=== PATIENT | female | born 1955 | race Caucasian/White ===

== ENCOUNTER 2016-09-16 17:26 | Observation (INO) | payer OTHER ==
--- NOTE | 2016-09-16 17:33 | ED ---
General Adult HPI - General Stated complaint: Fall-Leg Injury Time Seen by Provider: 09/16/16 17:32 - History of Present Illness Initial comments: Patient is a 61-year-old female who presents to the emergency department via EMS for evaluation of right lower extremity pain and deformity. Patient states that she was in her backyard when her dog ran after her tripping her. Patient states that while she was in the air she noted that her leg was bent sideways. She landed on the ground and was experiencing pain in her right lower extremity. Patient states she sat there until her daughter found her and called 911 for further evaluation. Patient denies striking her head or losing consciousness. She denies any headache or neck pain. Patient is not on any anticoagulant or antiplatelet medication. EMS reports that there was obvious deformity of the right lower extremity in the mid tibia upon their initial evaluation. They splinted the extremity treated the patient with a milligrams of morphine and 4 of Zofran and transported her to the ED. She reports she was in her usual state of health until this injury occurred. She denies any additional complaints at this time. - Related Data Home Medications Medication Instructions Recorded Confirmed Aspirin EC [Ecotrin Low Dose] 81 mg PO DAILY PRN 09/16/16 09/16/16 Butalb/APAP/Caff 50-325-40Mg 1 tab PO Q4H PRN 09/16/16 09/16/16 [Fioricet 50-325-40] Levothyroxine Sodium [Synthroid] 100 mcg PO MOWEFR 09/16/16 09/16/16 Meloxicam [Mobic] 15 mg PO DAILY 09/16/16 09/16/16 Multivitamins, Thera [Multivitamin 1 tab PO DAILY 09/16/16 09/16/16 (formulary)] Allergies Allergy/AdvReac Type Severity Reaction Status Date / Time cephalexin [From Keflex] Allergy Nausea & Verified 09/16/16 17:49 Vomiting & Diarrhea hydromorphone [From Dilaudid] Allergy Unknown Verified 09/16/16 17:44 Review of Systems ROS Statement: Those systems with pertinent positive or pertinent negative responses have been documented in the HPI. ROS Other: All systems not noted in ROS Statement are negative. Constitutional: Denies: fever, chills Respiratory: Denies: dyspnea Cardiovascular: Denies: chest pain, palpitations Endocrine: Denies: fatigue Gastrointestinal: Reports: nausea (after morphine). Denies: abdominal pain, vomiting Genitourinary: Denies: dysuria Musculoskeletal: Reports: other (RLE pain). Denies: back pain Skin: Reports: change in color (bruising to RLE) Neurological: Denies: headache, weakness Psychiatric: Denies: anxiety, depression Hematological/Lymphatic: Denies: easy bleeding, easy bruising General Exam General appearance: alert, in distress (appears uncomfortable) Head exam: Present: atraumatic, normocephalic, normal inspection Eye exam: Present: normal appearance, PERRL, EOMI. Absent: scleral icterus, conjunctival injection, periorbital swelling ENT exam: Present: normal exam, mucous membranes moist Neck exam: Present: normal inspection. Absent: tenderness, meningismus, lymphadenopathy Respiratory exam: Present: normal lung sounds bilaterally. Absent: respiratory distress, wheezes, rales, rhonchi, stridor Cardiovascular Exam: Present: regular rate, normal rhythm, normal heart sounds. Absent: systolic murmur, diastolic murmur, rubs, gallop, clicks GI/Abdominal exam: Present: soft, normal bowel sounds. Absent: distended, tenderness, guarding, rebound, rigid Rectal exam: Present: deferred Extremities exam: Present: tenderness, normal capillary refill Right Lower Leg exam: Present: tenderness, swelling, ecchymosis Ankle exam: Absent: tenderness, swelling Foot/Toe exam: Present: full ROM. Absent: tenderness, swelling, abrasion, laceration, ecchymosis, deformity, dislocation Neurovascular tendon exam: Absent: abnormal cap refill, sensory deficit, pallor Course Vital Signs 09/16/16 09/16/16 09/16/16 17:40 17:43 19:37 Temperature 98.7 F Pulse Rate 70 69 69 Respiratory 18 18 18 Rate Blood Pressure 133/61 133/67 140/72 O2 Sat by Pulse 96 97 97 Oximetry - Reevaluation(s) Reevaluation #1: Patient updated on x-ray findings as well as plan for admission with likely OR tomorrow morning. 09/16/16 18:32 EKG Findings - EKG Comments: EKG Findings:: EKG performed at 1925 rate is 70, PACs noted, normal intervals, no acute ST elevations or depressions Procedures - Orthopedic Splinting/Casting Injury #1 Side: right Lower Extremity Injury Location: lower leg Medical Decision Making - Medical Decision Making Patient was seen and evaluated immediately upon arrival from EMS Per EMS the patient had an obvious deformity of the right lower [place], she was splinted with a pillow and transported to the ED Patient with significant tenderness the mid to distal tib-fib area, she is neurovascularly intact distal to the injury. X-rays were ordered. X-ray reveals a midshaft comminuted spiral tibial fracture. As well as a proximal fibular fracture. Patient care discussed with Dr. Wagner (ortho commercial drone software developer) who requested the patient have a CT of the right lower extremity with attention to the ankle to rule out nondisplaced fracture, he recommends the patient be admitted to his service with a consult to medicine for preoperative clearance. Admission plan was discussed with the patient was agreeable. Orders placed Posterior splint was applied to patients leg. She remained neurovascularly intact after splinting. - Lab Data Result diagrams: 09/16/16 19:09 09/16/16 19:09 Disposition Clinical Impression: Tibia/fibula fracture, shaft Disposition: ADMITTED IP TO THIS [facility] Condition: Good
[2016-09-16] MEDS ORDERED: NALOXONE 0.4 MG/ML 1 ML VIAL IV PRN (18:55)
[2016-09-16] MEDS ORDERED: ACETAMINOPHEN TAB 325 MG TAB PO PRN (18:55)
--- NOTE | 2016-09-16 19:05 | XR ---
EXAMINATION TYPE: XR tibia fibula RT DATE OF EXAM: 09/16/2016 COMPARISON: NONE HISTORY: Pain after injury TECHNIQUE: 4 views FINDINGS: The distal tibial shaft shows an oblique fracture with one shaft width lateral displacement . The proximal fibular shaft shows an oblique fracture with one shaft width displacement laterally. The joints at the knee and the ankle are intact. IMPRESSION: Fractures as noted.
[2016-09-16 19:24] LABS: Basophils % (A) 0 %; CH 31.5; CHCM 33.2; Eosinophils % (A) 0 %; HCT 44.8 % (34.0-46.0); HDW 2.19; HGB 14.4 gm/dL (11.4-16.0); Luc # (Auto) 0.05; Luc % (Auto) 1; Lymphocytes # (A) 0.7 k/uL (1.0-4.8); Lymphocytes % (A) 8 %; MCH 30.7 pg (25.0-35.0); MCHC 32.2 g/dL (31.0-37.0); MCV 95.4 fL (80.0-100.0); Mean Platelet Volume 8.3; Monocytes # (A) 0.4 k/uL (0-1.0); Monocytes % (A) 5 %; Neutrophils # (A) 7.9 k/uL (1.3-7.7); Neutrophils % (A) 86 %; RDW 13.2 % (11.5-15.5); WBC 9.2 k/uL (3.8-10.6); WBC (Perox) 9.31
[2016-09-16 19:32] LABS: Anion Gap 9 mmol/L; Blood Urea Nitrogen 15 mg/dL (7-17); Calcium 9.3 mg/dL (8.4-10.2); Carbon Dioxide 25 mmol/L (22-30); Chloride 109 mmol/L (98-107); Glucose 117 mg/dL (74-99); Non-African American GFR(MDRD) >60 (>60 ml/min/1.73 sqM); Sodium 143 mmol/L (137-145)
[2016-09-16] MEDS: SODIUM CHLORIDE 0.9% 1,000 ML IV SCH (19:41)
[2016-09-16] MEDS: ONDANSETRON 4 MG/2 ML VIAL IVP PRN (19:42)
[2016-09-16] MEDS: MORPHINE SULFATE 4 MG/ML SYRINGE IV PRN (19:45)
--- NOTE | 2016-09-16 19:57 | XR ---
EXAMINATION TYPE: XR chest 1V DATE OF EXAM: 09/16/2016 COMPARISON: NONE HISTORY: Preoperative clearance for fracture treatment TECHNIQUE: Single frontal view of the chest is obtained. FINDINGS: There is no focal air space opacity, pleural effusion, or pneumothorax seen. The cardiac silhouette size is within normal limits. Thoracic aorta tortuosity is noted. The osseous structures a re intact. IMPRESSION: No acute process.
[2016-09-16 20:10] LABS: Partial Thromboplastin Time 22.4 sec (22.0-30.0)
[2016-09-16 20:21] LABS: Prothrombin Time 9.8 sec (9.0-12.0)
[2016-09-16] MEDS: METOCLOPRAMIDE 5 MG/ML 2 ML VIAL IVP PRN (20:31)
--- NOTE | 2016-09-16 20:54 | CT ---
EXAMINATION TYPE: CT lower extremity RT wo con DATE OF EXAM: 09/16/2016 COMPARISON: same-day radiographs HISTORY: Fall today; pain. CT DLP: 639.00 mGycm Automated exposure control for dose reduction was used. FINDINGS: The distal tibial shaft oblique fracture is mildly comminuted with one-half shaft width lateral displ acement, and with 2.5 cm override. There is a nondisplaced posterior malleolar fracture which extends down through the tibial plafond an d into the tibiotalar joint. The tibiotalar articulation is congruent. The talus is not fractured and the subtalar joint is intact. The proximal oblique fibular neck and proximal shaft fracture is moderately comminuted with one-half shaft width displacement laterally and with approximately 1 cm override. The upper tibiofibular artic ulation is congruent as is the compartments of the knee. IMPRESSION: 1. DISTAL TIBIAL SHAFT FRACTURE. 2. NONDISPLACED POSTERIOR MALLEOLAR INTRA-ARTICULAR FRACTURE. 3. UPPER FIBULAR SHAFT/NECK FRACTURE.
[2016-09-17] MEDS: MORPHINE SULFATE 4 MG/ML SYRINGE IV PRN ×6 (02:35→23:31)
[2016-09-17] MEDS: ONDANSETRON 4 MG/2 ML VIAL IVP PRN ×5 (05:54→19:19)
[2016-09-17] MEDS: SODIUM CHLORIDE 0.9% 1,000 ML IV SCH (05:59)
--- NOTE | 2016-09-17 08:29 | P.HPOR ---
History of Present Illness H&P Date: 09/17/16 This is a pleasant 61-year-old female who sustained an injury to the right lower extremity yesterday morning. Patient states she was in her yard when her dog ran into her. Patient states her leg came out from under her and she noticed a deformity to the right leg right away. Patient states she was unable to get up and walk on the right lower extremity and she had to crawl back into her house in order to get a hold of her daughter. Patient states her daughter called EMS and she was taken to the emergency room. X-rays and a CT were done in the emergency room showing right tib/fib fracture and posterior malleolar fracture. Patient was treated with a long leg splint in emergency room and admitted for orthopedic evaluation. Patient states she still has pain in the right lower extremity but it is tolerable. Patient denies any numbness, weakness, tingling. Patient states she did not hit her head. Patient denies any neck pain, back pain, bilateral upper extremity pain, or pain in the left lower extremity. Review of Systems See HPI. 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 History of Any Multi-Drug Resistant Organisms: None Reported Past Surgical History: No Surgical Hx Reported Past Anesthesia/Blood Transfusion Reactions: No Reported Reaction Past Psychological History: No Psychological Hx Reported Smoking Status: Current every day smoker Past Alcohol Use History: Occasional Past Drug Use History: Marijuana Medications and Allergies Home Medications Medication Instructions Recorded Confirmed Type Aspirin EC [Ecotrin Low Dose] 81 mg PO DAILY PRN 09/16/16 09/16/16 History Butalb/APAP/Caff 50-325-40Mg 1 tab PO Q4H PRN 09/16/16 09/16/16 History [Fioricet 50-325-40] Levothyroxine Sodium [Synthroid] 100 mcg PO MOWEFR 09/16/16 09/16/16 History Meloxicam [Mobic] 15 mg PO DAILY 09/16/16 09/16/16 History Multivitamins, Thera [Multivitamin 1 tab PO DAILY 09/16/16 09/16/16 History (formulary)] Allergies Allergy/AdvReac Type Severity Reaction Status Date / Time cephalexin [From Keflex] Allergy Nausea & Verified 09/16/16 17:49 Vomiting & Diarrhea hydromorphone [From Dilaudid] Allergy Unknown Verified 09/16/16 17:44 Physical Examination Patient is alert and oriented 3 and is in no acute distress. On exam of the right lower extremity a long leg splint is intact. Patient is able to wiggle the toes of the right foot. Sensation is intact. Capillary refill is normal at less than 2 seconds. No tenderness to palpation of the right knee or upper leg. Patient has full range of motion of the left lower extremity. There is no tenderness to palpation of the left lower extremity. Neurovascular status is intact to bilateral lower extremities. There is no cervical midline tenderness. There is no tenderness to palpation of bilateral upper extremities and patient has full range of motion of bilateral upper extremities. Neurovascular status is intact bilateral upper extremities. Results X-rays of the right lower extremity are reviewed showing displaced distal tibial shaft fracture and displaced proximal fibular shaft fracture. A CT of the right lower extremity was done showing #1 distal tibial shaft fracture, nondisplaced posterior malleolar intra-articular fracture. #3 upper fibular shaft/neck fracture. Report by Dr. Love - Labs Labs: Abnormal Lab Results - Last 24 Hours (Table) 09/16/16 09/16/16 Range/Units 19:09 19:09 Neutrophils # 7.9 H (1.3-7.7) k/uL Lymphocytes # 0.7 L (1.0-4.8) k/uL Chloride 109 H (98-107) mmol/L Glucose 117 H (74-99) mg/dL H & H 09/16/16 Range/Units 19:09 Hgb 14.4 (11.4-16.0) gm/dL Hct 44.8 (34.0-46.0) % Coagulation 09/16/16 Range/Units 19:09 INR 1.0 (<1.2) Result Diagrams: 09/16/16 19:09 09/16/16 19:09 Assessment and Plan (1) Tibia/fibula fracture, shaft Status: Acute (2) Closed fracture of posterior malleolus Status: Acute Plan: #1. Patient is to be NPO #2. Nonweightbearing to the right lower extremity, continue long leg splint #3. Rest, ice, elevate the right lower extremity #4. Patient is scheduled for placement of right tibial intramedullary nail and ORIF right posterior malleolus with Dr. Wagner today. #5. Will continue to follow patient closely
[2016-09-17] MEDS: METOCLOPRAMIDE 5 MG/ML 2 ML VIAL IVP PRN ×3 (10:51→23:31)
[2016-09-17] MEDS ORDERED: IV FLUID CONTINUATION 1,000 ML IV ONE (12:47)
[2016-09-17] MEDS ORDERED: ceFAZolin 2 GM in SODIUM CHLORIDE 0.9% 100 ML IVPB ONE (13:11)
[2016-09-17] MEDS ORDERED: GLYCOPYRROLATE 0.2 MG/ML 2 ML VIAL ONE (13:18)
[2016-09-17] MEDS ORDERED: KETAMINE 10 MG/ML 20 ML VIAL ONE (13:18)
[2016-09-17] MEDS ORDERED: PHENYLEPHRINE-0.9% NACL SYG 1 MG/10 ML SYRINGE ONE (13:18)
[2016-09-17] MEDS ORDERED: fentaNYL (PF) 50 MCG/ML 2 ML AMP ONE (13:18)
[2016-09-17] MEDS ORDERED: MIDAZOLAM 2 MG/2 ML VIAL ONE (13:18)
[2016-09-17] MEDS ORDERED: NEOSTIGMINE 1 MG/ML 10 ML VIAL ONE (13:18)
[2016-09-17] MEDS ORDERED: LIDOCAINE 1% INJ 10MG/ML (20 ML MDV) ONE (13:18)
[2016-09-17] MEDS ORDERED: MORPHINE SULFATE 10 MG/ML SYRINGE ONE (13:18)
[2016-09-17] MEDS ORDERED: SUCCINYLCHOLINE CHLORIDE 100 MG/5 ML SYR IV ONE (13:18)
[2016-09-17] MEDS ORDERED: ROCURONIUM BROMIDE 10 MG/ML 10 ML VIAL IV ONE (13:18)
[2016-09-17] MEDS ORDERED: PROPOFOL 10 MG/ML 20 ML VIAL IV ONE (13:18)
[2016-09-17] MEDS ORDERED: LACTATED RINGERS 1,000 ML IV ONE ×2 (14:15→15:49)
[2016-09-17] MEDS ORDERED: CLINDAMYCIN 600 MG in SODIUM CHLORIDE 0.9% 1,000 ML IRRIGATION ONE (14:29)
--- NOTE | 2016-09-17 15:35 | P.PN ---
Progress Note - Text Unable to evaluate today as patient is an surgery.
[2016-09-17] MEDS ORDERED: ONDANSETRON 4 MG/2 ML VIAL IVP ONE (16:31)
--- NOTE | 2016-09-17 16:31 | P.OP ---
Date of Procedure: 09/17/16 Preoperative Diagnosis: 1. Closed, right spiral distal third tibia fracture 2. Right proximal fibula fracture 3. Right posterior malleolus fracture 4. Current every day cigarette smoker Postoperative Diagnosis: Same Procedure(s) Performed: 1. Right tibial intramedullary nail 2. Open reduction internal fixation right posterior malleolus fracture 3. Nonoperative management right proximal fibula fracture 4. Manual application of joint stress by physician for radiography, right ankle 5. Application of short leg splint Implants: Synthes 340 mm x 9 mm tibial nail Anesthesia: RADHIKA Surgeon: Flako Wagner Estimated Blood Loss (ml): 50 IV fluids (ml): 600 Urine output (ml): 1,700 Pathology: none sent Condition: stable Disposition: PACU Indications for Procedure: The patient is a 61-year-old female with a medical history significant for currently smoking cigarettes every day who sustained an isolated injury to her right leg. Yesterday the patient was out walking her dog when she was knocked over and sustained an injury to her right leg. She had immediate pain, deformity and an inability to walk. She was brought to the emergency department where x-rays showed a right tibia fracture and proximal fibula fracture. She was placed in a splint and admitted under my care. I ordered a computed tomography scan to rule out a posterior malleolus fracture. The computed tomography scan did show a large, nondisplaced posterior malleolus fracture. The patient was cleared for surgery and I met with the family before surgery discussed the potential risks and complications of surgery including but not limited to risk of anesthesia, risk of superficial infection, risk of deep infection, risk of delayed wound healing, risk of damage to local blood vessels or nerves, risk of intraoperative fracture, risk of postoperative fracture, risk of fracture nonunion, risk of fracture malunion, risk of postoperative displacement of both the tibia and posterior malleolus fracture, risk of chronic pain, risk of chronic swelling, risk of postoperative compartment syndrome, risk of inability to ambulate preinjury level of function , and risk of postoperative medical complications including DVT and possibly fatal PE. The patient understands that due to her current every day smoking she is at a much higher risk of having a complication particularly a wound healing issue or fracture nonunion. She voiced her understanding of this and provided verbal and written consent to go forward with surgery. Operative Findings: Description of Procedure: The patient was identified in preoperative holding and the correct right lower extremity was marked with my initials. I reviewed the consent form with the patient and answered all of her questions. She was then brought back to the operating room by anesthesia. She was positioned onto the operating room table after a general anesthetic was administered while on the gurney. A Rouse catheter was placed. Preoperative antibiotics were administered. A tourniquet was applied to the proximal aspect of the right thigh but was not inflated for the entire case. A bump was placed under her right leg internally rotating it. The left leg was secured to the operating room table with foam and tape. The patient had all extremities well-padded. The patient's leg was then prepped and draped in the standard sterile fashion. A timeout was performed identifying the correct patient, operative extremity, and procedure. I began by attempting to clamp the tibia fracture. A stab incision was made proximal to the fracture along the posterior medial border of the tibia and a second stab incision was made along the anterolateral aspect of the leg just distal to the fracture. A large [id number] spin down Waters reduction clamp was placed through the stab incisions and I attempted to manipulate the fracture and clamp it. Due to the large butterfly fragment I was not able to obtain a vector to provide reduction and compression with a clamp. Attention was then turned to the posterior malleolus fracture. Stab incisions were made just proximal to the lateral aspect of the tibiotalar joint anteriorly and posteriorly. Hemostat was used to spread down to bone. A Waters adduction clamp was used to provide compression across the posterior malleolus fracture with 1 kirill placed the stab incision posteriorly and one anteriorly. I verified position of the clamp. I then placed a K wire from anterior to posterior over the anterolateral aspect of the distal tibia directed posterior laterally catching the posterior malleolus fragment. The wire was measured and a partially threaded 4.0 mm cannulated screw was placed across the posterior malleolus. I verified position of the screw which appeared to capture the posterior malleolus and was out of the way of the nail. A sterile radiolucent triangle was then placed on the OR table and the knee was draped across the triangle. I outlined a 3 cm incision over the inferior pole of the patella. Skin incision was made a scalpel and dissection was carried down carefully to the peritenon which was incised longitudinally in line with the skin incision. I split the patellar tendon in the midline. I then placed a guidepin along the medial border of the lateral tibial spine on the AP view and just at the anterior crest of the tibia on the lateral view. The guidepin was advanced and the proximal tibia and opening reamer was used to gain access to the tibia. A ball-tipped guidewire with a bend at the end was then entered into the tibia and advanced down to the fracture site. The fracture site was gently manipulated and the guidewire was passed into the distal fragment. The guidewire was centered at the physes scar in both the AP and lateral planes. Once the guidewire was positioned distally a cannulated measuring device was used to measure the length of the nail. I then started reaming with an 8 mm reamer and significant chatter was generated with the 9 mm reamer. I then reamed and a half millimeter increments up to a 10.5 mm reamer. A 9 mm nail was dispensed and I verified the targeting arm matched up with all the proximal slots. The nail was then passed over the guidewire and advanced down with light blows of mallet to the fracture site. Under direct fluoroscopic imaging the nail was advanced past the fracture and into the distal fragment. The fracture appeared to be well reduced and the nail was centered in the distal fragment. I then verified proximally that the nail was countersunk. I then placed 2 interlocking screws proximally through the targeting arm with the distal screw in the static arm and the more proximal screw in the dynamic portion of the dynamic slot. The targeting arm was then removed and the leg was placed flat on the OR table. The C-arm was then brought down and 3 distal interlocking screws were placed using the freehand technique. At this point a manual external rotation stress x-ray of the ankle was performed to make sure there was no syndesmotic instability. A mortise view was obtained and an external rotation force was applied to the ankle. There is no widening of the syndesmosis or medial clear space. I interpreted this as a stable reduction. Final x-rays of the tibia and ankle were taken verifying reduction of the fractures and placement of the tibial nail and screws. All wounds were copiously irrigated. The patellar tendon was closed with interrupted 0 Vicryl stitches. The peritenon was closed with interrupted 2-0 Vicryl. The deep subcu over the patellar incision was closed with interrupted 2-0 Vicryl. Skin incisions were all closed with 3-0 nylon horizontal mattress stitches. I verified that all instrument, sponge, and sharp counts were correct. Sterile dressing consisting of Betadine soaked Adaptic, 4 x 4, and web roll was applied. A very well-padded bulky Herron splint was then placed. The patient was transferred from the operating room table to the [facility] and brought to PACU having type the procedure well Plan: The patient is going to be admitted for pain control. She'll receive 2 doses of postoperative antibiotics. She is to receive Lovenox 30 mg twice a day 2 weeks for DVT prophylaxis. We'll check a 25-hydroxy vitamin D level for bone health. She'll follow-up in the office in 2 weeks. She is to be strictly nonweightbearing in her splint at all times.
--- NOTE | 2016-09-17 16:38 | FL ---
Fluoroscopy HISTORY: Pain 2 minutes 58 seconds fluoroscopy time supplied to the referring clinician. 11 intraoperative C-arm i mages document the procedure. See dictated report from orthopedic surgery.
--- NOTE | 2016-09-17 16:39 | XR ---
Limited right leg HISTORY: Fracture, open reduction internal fixation Intraoperative C-arm images document the procedure
[2016-09-17] MEDS ORDERED: MEPERIDINE 50 MG/ML SYRINGE IVP ONE (16:42)
[2016-09-17] MEDS ORDERED: NALOXONE 0.4 MG/ML 1 ML VIAL IV PRN (16:45)
[2016-09-17] MEDS ORDERED: MAGNESIUM HYDROXIDE 2,400 MG/10 ML CUP PO PRN (16:45)
[2016-09-17] MEDS ORDERED: HYDROmorphone 1 MG/ML 1 ML SYRINGE IVP PRN ×2 (16:45)
[2016-09-17] MEDS ORDERED: HYDROcodone/APAP 5-325MG 1 EACH TAB PO PRN (16:45)
[2016-09-17] MEDS: HYDROcodone/APAP 5-325MG 1 EACH TAB PO PRN (20:31)
[2016-09-17] MEDS ORDERED: ceFAZolin 2 GM in SODIUM CHLORIDE 0.9% 100 ML IVPB SCH (21:00)
[2016-09-18] MEDS: MORPHINE SULFATE 4 MG/ML SYRINGE IV PRN ×3 (01:41→07:20)
[2016-09-18] MEDS: CALCIUM CARBONATE 500 MG CHEWABLE PO SCH ×4 (02:32→16:43)
[2016-09-18] MEDS: SENNOSIDES-DOCUSATE SODIUM 1 EACH TAB PO SCH ×2 (02:33→20:58)
[2016-09-18] MEDS: HYDROcodone/APAP 5-325MG 1 EACH TAB PO PRN (02:37)
[2016-09-18] MEDS: ceFAZolin 2 GM in SODIUM CHLORIDE 0.9% 100 ML IVPB SCH ×2 (04:23→14:01)
[2016-09-18] MEDS: ONDANSETRON 4 MG/2 ML VIAL IVP PRN (04:27)
[2016-09-18] MEDS: DIAZEPAM 5 MG TAB PO PRN (07:20)
[2016-09-18] MEDS: ENOXAPARIN 30 MG/0.3 ML SYRINGE SQ SCH (08:46)
--- NOTE | 2016-09-18 10:42 | P.DS ---
Providers Date of admission: 09/16/16 19:04 Expected date of discharge: 09/18/16 Attending physician: Flako Wagner Consults: 09/16/16 19:53 Consult Physician Routine Consulting Provider: Virgen Panda Consult Reason/Comments: medical management Do you want consulting provider notified?: Yes, Notify in am Primary care physician: Sandra Gunn - Discharge Diagnosis(es) (1) Tibia/fibula fracture, shaft Current Visit: Yes Status: Acute (2) Closed fracture of posterior malleolus Current Visit: Yes Status: Acute Hospital Course: This is a 61-year-old female who sustained an injury to the right leg when she was knocked down by her dog on 09/16/2016. The patient was evaluated in the emergency room and x-rays and CT of the right lower extremity revealed right tibia fracture, proximal fibular fracture and posterior malleolus fracture. Patient was admitted for orthopedic management. After discussion and consideration patient elects to proceed with ORIF right posterior malleolus fracture, right tibial intramedullary nail and nonoperative management of right proximal fibula fracture. The patient is seen preoperatively by Dr. Wagner and cleared for surgery. Patient is admitted to [facility] on 09/16/2016 for ORIF right posterior malleolus fracture and right tibial intramedullary nail. The procedures performed without complication or sequelae. The patient is doing well postoperatively. Labs and vital signs are stable on day of discharge. On day of discharge patient's splint is intact. Patient has full sensation of the right toes. Patient is able to wiggle her toes. Neurovascular status to the right lower extremity is intact. Patient is discharged home in good condition. Please see med rec for accurate list of home medications. Patient Condition at Discharge: Good Plan - Discharge Summary New Discharge Prescriptions: New Enoxaparin Sodium [Lovenox] 30 mg SQ BID #28 syringe Docusate [Colace] 100 mg PO DAILY #20 capsule HYDROcodone/APAP 10-325MG [[place] 10-325] 1 - 2 tab PO Q4-6H PRN #90 tab PRN Reason: Pain No Action Aspirin EC [Ecotrin Low Dose] 81 mg PO DAILY PRN PRN Reason: [facility] HEALTH Multivitamins, Thera [Multivitamin (formulary)] 1 tab PO DAILY Meloxicam [Mobic] 15 mg PO DAILY Levothyroxine Sodium [Synthroid] 100 mcg PO MOWEFR Butalb/APAP/Caff 50-325-40Mg [Fioricet 50-325-40] 1 tab PO Q4H PRN PRN Reason: Migraine Headache Discharge Medication List Aspirin EC [Ecotrin Low Dose] 81 mg PO DAILY PRN 09/16/16 [History] Butalb/APAP/Caff 50-325-40Mg [Fioricet 50-325-40] 1 tab PO Q4H PRN 09/16/16 [ History] Levothyroxine Sodium [Synthroid] 100 mcg PO MOWEFR 09/16/16 [History] Meloxicam [Mobic] 15 mg PO DAILY 09/16/16 [History] Multivitamins, Thera [Multivitamin (formulary)] 1 tab PO DAILY 09/16/16 [History ] Docusate [Colace] 100 mg PO DAILY #20 capsule 09/18/16 [Rx] Enoxaparin Sodium [Lovenox] 30 mg SQ BID #28 syringe 09/18/16 [Rx] HYDROcodone/APAP 10-325MG [[place] 10-325] 1 - 2 tab PO Q4-6H PRN #90 tab [Rx] Follow up Appointment(s)/Referral(s): Sandra Gunn DO [Primary Care Provider] - 1-2 days [facility] Nurse, [NON-STAFF] - 1 Week Flako Wagner MD [Medical Doctor] - 2 Weeks Activity/Diet/Wound Care/Special Instructions: 1. Strict non-weight bearing right lower extremity 2. Keep splint clean and dry, do not remove splint 3. Keep your leg elevated and apply ice packs 4. Take pain medications as directed 5. Follow-up in office in 2 weeks Discharge Disposition: HOME SELF-CARE
[2016-09-18] MEDS: hydrOXYzine PAMOATE 25 MG CAP PO PRN ×3 (11:04→20:58)
[2016-09-18] MEDS: HYDROcodone/APAP 10-325MG 1 EACH TAB PO PRN ×3 (11:04→20:57)
[2016-09-18 11:05] LABS: CH 31.5; CHCM 32.2; HCT 32.1 % (34.0-46.0); HDW 2.12; MCH 31.6 pg (25.0-35.0); MCHC 32.2 g/dL (31.0-37.0); MCV 98.3 fL (80.0-100.0); Mean Platelet Volume 9.3; RBC 3.27 m/uL (3.80-5.40); RDW 12.9 % (11.5-15.5); WBC 7.3 k/uL (3.8-10.6)
[2016-09-18 11:14] LABS: HGB 10.3 gm/dL (11.4-16.0)
[2016-09-18] MEDS: METOCLOPRAMIDE 5 MG/ML 2 ML VIAL IVP PRN (11:21)
[2016-09-18 11:44] LABS: Anion Gap 8 mmol/L; Blood Urea Nitrogen 8 mg/dL (7-17); Calcium 8.6 mg/dL (8.4-10.2); Carbon Dioxide 25 mmol/L (22-30); Chloride 105 mmol/L (98-107); Glucose 103 mg/dL (74-99); Non-African American GFR(MDRD) >60 (>60 ml/min/1.73 sqM); Potassium 4.1 mmol/L (3.5-5.1); Sodium 138 mmol/L (137-145)
[2016-09-18] MEDS ORDERED: MULTIVITAMINS, THERA 1 EACH TAB PO SCH (12:00)
[2016-09-18] MEDS ORDERED: CHOLECALCIFEROL 1,000 UNIT TAB PO SCH (12:00)
[2016-09-18] MEDS: SODIUM CHLORIDE 0.9% 1,000 ML IV SCH ×3 (13:51→16:44)
--- NOTE | 2016-09-18 14:34 | P.CONS ---
History of Present Illness - Reason for Consult COPD - History of Present Illness Patient is a pleasant 61-year-old female came in to the hospital for definitive fracture patient is mechanical fall after dog ran into her and patient was on floor for 6 hours before she was seen by her daughter and patient underwent surgery yesterday. Patient is eating well denied any cough dysuria patient has a Rouse catheter which will be removed today patient denied any fever, chills, nausea, vomiting, abdominal pain patient was unable to perform physical therapy earlier today but she is feeling much better now her pain is well controlled at this time. Patient does smoke never was diagnosed with COPD. Review of Systems REVIEW OF SYSTEMS: CONSTITUTIONAL: No fever, no malaise, no fatigue. HEENT: No recent visual problems or hearing problems. Denied any sore throat. CARDIOVASCULAR: No chest pain, orthopnea, PND, no palpitations, no syncope. PULMONARY: No shortness of breath, no cough, no hemoptysis. GASTROINTESTINAL: No diarrhea, no nausea, no vomiting, no abdominal pain. Normoactive bowel sounds. NEUROLOGICAL: No headaches, no weakness, no numbness. HEMATOLOGICAL: Denies any bleeding or petechiae. GENITOURINARY: Denies any burning micturition, frequency, or urgency. MUSCULOSKELETAL/RHEUMATOLOGICAL: Denies any joint pain, swelling, or any muscle pain. ENDOCRINE: Denies any polyuria or polydipsia. The rest of the 14-point review of systems is negative. 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 History of Any Multi-Drug Resistant Organisms: None Reported Past Surgical History: No Surgical Hx Reported Past Anesthesia/Blood Transfusion Reactions: No Reported Reaction Past Psychological History: No Psychological Hx Reported Smoking Status: Current every day smoker Past Alcohol Use History: Occasional Past Drug Use History: Marijuana Medications and Allergies Home Medications Medication Instructions Recorded Confirmed Type Aspirin EC [Ecotrin Low Dose] 81 mg PO DAILY PRN 09/16/16 09/16/16 History Butalb/APAP/Caff 50-325-40Mg 1 tab PO Q4H PRN 09/16/16 09/16/16 History [Fioricet 50-325-40] Levothyroxine Sodium [Synthroid] 100 mcg PO MOWEFR 09/16/16 09/16/16 History Meloxicam [Mobic] 15 mg PO DAILY 09/16/16 09/16/16 History Multivitamins, Thera [Multivitamin 1 tab PO DAILY 09/16/16 09/16/16 History (formulary)] Allergies Allergy/AdvReac Type Severity Reaction Status Date / Time cephalexin [From Keflex] Allergy Nausea & Verified 09/16/16 17:49 Vomiting & Diarrhea hydromorphone [From Dilaudid] Allergy Unknown Verified 09/16/16 17:44 Physical Exam Vitals: Vital Signs Temp Pulse Pulse Resp BP Pulse Ox 09/18/16 14:25 99.0 F 78 16 130/83 95 09/18/16 04:31 98.1 F 09/18/16 02:39 99.6 F 09/18/16 01:55 100.8 F H 74 16 132/82 92 L 09/17/16 19:15 70 139/66 09/17/16 19:00 72 125/65 09/17/16 18:45 70 139/73 09/17/16 18:30 103 H 127/68 09/17/16 18:15 88 137/77 09/17/16 18:00 73 142/71 09/17/16 17:45 81 155/74 09/17/16 17:29 98.6 F 77 18 143/82 94 L 09/17/16 16:56 77 16 148/69 97 09/17/16 16:41 86 18 135/60 97 09/17/16 16:26 87 18 142/63 98 09/17/16 16:13 88/51 09/17/16 16:11 97.4 F L 80 14 78/46 94 L 09/17/16 16:00 87 18 Intake and Output 09/17/16 09/18/16 09/18/16 22:59 06:59 14:59 Intake Total 1090 200 480 Output Total 8418 834 3821 Balance -210 -200 -1020 Intake: IV 500 Oral 590 200 480 Output: Urine 6819 863 9965 Uretheral (Rouse) 1500 Estimated Blood Loss 50 Other: Voiding Method Indwelling Catheter Indwelling Catheter Indwelling Catheter # Voids 1 Weight 68.039 kg PHYSICAL EXAMINATION: GENERAL: The patient is alert and oriented x3, not in any acute distress. Well developed, well nourished. HEENT: Pupils are round and equally reacting to light. EOMI. No scleral icterus. No conjunctival pallor. Normocephalic, atraumatic. No pharyngeal erythema. No thyromegaly. CARDIOVASCULAR: S1 and S2 present. No murmurs, rubs, or gallops. PULMONARY: Chest is clear to auscultation, his minimal expiratory wheezing bilaterally ABDOMEN: Soft, nontender, nondistended, normoactive bowel sounds. No palpable organomegaly. MUSCULOSKELETAL: Deferred to orthopedic surgery EXTREMITIES: No cyanosis, clubbing, or pedal edema. NEUROLOGICAL: Gross neurological examination did not reveal any focal deficits. SKIN: No rashes. Results CBC & Chem 7: 09/18/16 06:12 09/18/16 11:12 Labs: Abnormal Lab Results - Last 24 Hours (Table) 09/18/16 09/18/16 Range/Units 06:12 11:12 RBC 3.27 L (3.80-5.40) m/uL Hgb 10.3 L D (11.4-16.0) gm/dL Hct 32.1 L (34.0-46.0) % Glucose 103 H (74-99) mg/dL Assessment and Plan Plan: #1 /fib fracture and posterior malleolus fracture: Patient underwent surgical correction pain management and DVT prophylaxis as per primary service. Pain is well-controlled patient did pass gas. #2 COPD: Undiagnosed is in minimal exacerbation patient will be started on inhalational steroids and albuterol ipratropium as needed. Although patient is complaining of cough without any shortness of breath. Patient is bronchospastic and exam. Minimal #3 hypothyroidism continue with levothyroxine. #4 nicotine abuse: Counseling was provided #5 marijuana use counseling was provided
[2016-09-18] MEDS: SYMBICORT 160-4.5 MCG INHALER INHALATION SCH (20:03)
[2016-09-18] MEDS: IPRATROPIUM-ALBUTEROL 3 ML NEB INHALATION SCH (20:03)
[2016-09-19] MEDS: DIAZEPAM 5 MG TAB PO PRN ×2 (00:34→13:04)
[2016-09-19] MEDS: hydrOXYzine PAMOATE 25 MG CAP PO PRN ×3 (02:03→13:04)
[2016-09-19] MEDS: HYDROcodone/APAP 10-325MG 1 EACH TAB PO PRN ×2 (02:03→08:30)
[2016-09-19 02:08] VITALS: BP 144/73; RESP 16
[2016-09-19] MEDS: SODIUM CHLORIDE 0.9% 1,000 ML IV SCH (04:10)
[2016-09-19] MEDS: SYMBICORT 160-4.5 MCG INHALER INHALATION SCH (07:15)
[2016-09-19] MEDS: IPRATROPIUM-ALBUTEROL 3 ML NEB INHALATION SCH (07:15)
[2016-09-19 07:29] VITALS: PULSE 80
[2016-09-19] MEDS: ENOXAPARIN 30 MG/0.3 ML SYRINGE SQ SCH (08:30)
[2016-09-19] MEDS: CALCIUM CARBONATE 500 MG CHEWABLE PO SCH (09:05)
[2016-09-19 10:40] VITALS: TEMP 98.4
--- NOTE | 2016-09-19 15:47 | P.PN ---
Subjective She is clinically doing well. Patient was pretty status did improve patient doesn't have any more wheezing. Patient is okay to be discharged from medical perspective. I will give her prescription for rescue inhaler. Patient did move her bowel, denied any chest pain denied any nausea, shortness of breath, dysuria. Her pain in the leg is well controlled. Objective - Vital Signs Vital signs: Vital Signs Temp 98.4 F 09/19/16 10:40 Pulse 80 09/19/16 07:29 Resp 16 09/19/16 02:06 BP 144/73 09/19/16 02:06 Pulse Ox 95 09/19/16 02:06 Intake & Output 09/18/16 09/19/16 09/19/16 18:59 06:59 18:59 Intake Total 1140 480 Output Total 1800 Balance -660 480 Intake: Intake, IV Titration 100 Amount ceFAZolin 2 gm In Sodium 100 Chloride 0.9% 100 ml @ 100 mls/hr IVPB Q8H [facility] Rx#:[id number] Oral 1040 Other 480 Output: Urine 1800 Uretheral (Rouse) 1500 Other: Voiding Method Toilet Bedside Commode Bedside Commode Bedside Commode # Voids 3 1 - Exam GENERAL: The patient is alert and oriented x3, not in any acute distress. Well developed, well nourished. HEENT: Pupils are round and equally reacting to light. EOMI. No scleral icterus. No conjunctival pallor. Normocephalic, atraumatic. No pharyngeal erythema. No thyromegaly. CARDIOVASCULAR: S1 and S2 present. No murmurs, rubs, or gallops. PULMONARY: Chest is clear to auscultation, wheezing resolved no crackles. ABDOMEN: Soft, nontender, nondistended, normoactive bowel sounds. No palpable organomegaly. MUSCULOSKELETAL: Deferred to orthopedic surgery EXTREMITIES: No cyanosis, clubbing, or pedal edema. NEUROLOGICAL: Gross neurological examination did not reveal any focal deficits. SKIN: No rashes. - Labs CBC & Chem 7: 09/18/16 06:12 09/18/16 11:12 Assessment and Plan Plan: #1 /fib fracture and posterior malleolus fracture: Patient underwent surgical correction pain management and DVT prophylaxis as per primary service. Pain is well-controlled patient did pass gas. #2 COPD: Undiagnosed is in minimal exacerbation patient will be started on inhalational steroids and albuterol ipratropium as needed. Although patient is complaining of cough without any shortness of breath. Patient's wheezing improved. Patient will be discharged on disc inhaler. Patient will benefit from pulmonary function testing as an outpatient. #3 hypothyroidism continue with levothyroxine. #4 nicotine abuse: Counseling was provided #5 marijuana use counseling was provided
== END 2016-09-19 13:22 | disposition home or self-care (01) ==
LOC: EC 17:26 → 3SUR 19:04
PROVIDERS: ADMIT Orthopaedic Surgery; ATTEND Orthopaedic Surgery
DX: S82.241A Displaced spiral fracture of shaft of right tibia, initial encounter for closed fracture (principal); S82.401A Unspecified fracture of shaft of right fibula, initial encounter for closed fracture; S82.891A Other fracture of right lower leg, initial encounter for closed fracture; J44.9 Chronic obstructive pulmonary disease, unspecified; E03.9 Hypothyroidism, unspecified; F17.200 Nicotine dependence, unspecified, uncomplicated; G43.909 Migraine, unspecified, not intractable, without status migrainosus; M19.90 Unspecified osteoarthritis, unspecified site; Z79.899 Other long term (current) drug therapy; Z88.5 Allergy status to narcotic agent; Z88.1 Allergy status to other antibiotic agents; F17.210 Nicotine dependence, cigarettes, uncomplicated; Y93.K1 Activity, walking an animal; W54.1XXA Struck by dog, initial encounter; W01.0XXA Fall on same level from slipping, tripping and stumbling without subsequent striking against object, initial encounter; Z79.1 Long term (current) use of non-steroidal anti-inflammatories (NSAID)
CPT/HCPCS: 27769; 29515; 29505 ×2; 96376; 96375 ×2; 96374; 99285; 36415; 94640 ×3; 93005; 97116; 97163; 86900; 86901; 80048 ×2; 85025; 85027; 85610; 85730; 86850; 82306; 71010; 73590 ×2; 73700; G0378 ×2; C1713; J2250; J2270 ×4; J2710; J2765 ×3; J2175; J0690 ×2; J2405 ×3; J2001; J3010; J1650 ×2; J2370; J0330; J2704

== ENCOUNTER → 2017-12-28 | Outpatient (CLI) | payer BC ==
--- NOTE | 2017-12-28 17:07 | US ---
EXAMINATION TYPE: Ultrasound MSK left shoulder DATE OF EXAM: 12/28/2017 COMPARISON: NONE CLINICAL HISTORY: 62-year-old female M25.512 PAIN IN LT SHOULDER,M75.102 ROTATOR CUFF TEAR,M75.42. ADDITIONAL REAL ESTATE RENTAL AGENT HISTORY: Chronic left shoulder pain for years, getting worse since Sep, pain f rom left jaw through left shoulder and down into upper left arm, had xray in office that showed some arthritis, PT and steroid inj with no improvement, cannot have an MRI because of metal clips in head TECHNIQUE: Multiple sonographic images of the left shoulder were obtained. FINDINGS: There is a longitudinal split tear of the long biceps tendon with associated mild surrounding fluid. Tendon remains appropriately situated within the bicipital groove. Diffuse heterogeneity of the subscapularis tendon with some focal hypoechogenicity along the inferior most fibers suggesting a partial articular sided tear. The majority of the tendon remains intact. Moderate degenerative joint space narrowing and marginal spurring at the acromioclavicular joint. The vest baster reports that dynamic maneuvers show no evidence for subacromial impingement. No significant effusion in the posterior recess of the glenohumeral joint. Some age related degenerat campbell changes in the posterior labrum. Diffuse heterogeneity of both supraspinatus and infraspinatus tendons without discrete tear. No atrophy of either supraspinatus or infraspinatus muscle belly. No effusion within the subacromial/subdeltoid bursa. IMPRESSION: 1. Longitudinal split tear of the long head biceps tendon with associated mild tenosynovitis. 2. Rotator cuff tendinosis with a small articular sided tear of the inferior subscapularis tendon fib ers. The majority of the tendon remains intact. 3. The supraspinatus and infraspinatus tendons remain intact. 4. Mild AC joint OA.
== END | disposition home or self-care (01) ==
LOC: RADUSWWP 10:04
PROVIDERS: ATTEND Family Medicine
DX: S46.112A Strain of muscle, fascia and tendon of long head of biceps, left arm, initial encounter (principal); M65.812 Other synovitis and tenosynovitis, left shoulder; M19.012 Primary osteoarthritis, left shoulder